=== PATIENT | male | born 1970 | race Caucasian/White ===

== ENCOUNTER 2018-11-23 21:45 | Emergency (ER) | payer MEDICAID, OTHER ==
[2018-11-23] MEDS ORDERED: ACETAMINOPHEN 500 MG TAB (23:50)
== END 2018-11-24 00:03 | disposition home or self-care (01) ==
LOC: E/R 11-24 00:03
DX: S43.102A Unspecified dislocation of left acromioclavicular joint, initial encounter (principal); E11.9 Type 2 diabetes mellitus without complications; F17.210 Nicotine dependence, cigarettes, uncomplicated; X58.XXXA Exposure to other specified factors, initial encounter; Y92.9 Unspecified place or not applicable; Z79.84 Long term (current) use of oral hypoglycemic drugs
CPT/HCPCS: 73000; 73030; 73050; 99283-25